=== PATIENT | male | born 1995 | race Caucasian/White ===

== ENCOUNTER 2018-05-05 17:22 | Emergency (ER) | payer SELFPAY ==
[2018-05-05] MEDS ORDERED: TYLENOL PO ONE (17:42)
[2018-05-05] MEDS ORDERED: TYLENOL ONE (17:47)
[2018-05-05] MEDS ORDERED: NACL 0.9% 1000 ML IV ONE (18:22)
--- NOTE | 2018-05-05 18:26 | Emergency Department Report ---
Blank Doc - Documentation Documentation: This is a 22-year-old male who presents to ED complaining of fever for the past 3 days, throat pain and back pain. Patient states he is at throat pain ongoing for about a week and is got more severe past 3 days. He states that temperature is at half the past 3 days he's had diffuse back pain and feels very sick. Patient received Tylenol in the ED triage with a temperature 101.9. An hour later while patient is in the ED with a temperature 103.9 Exam shows patient is diaphoretic and sweating, in some distress due to pain. Skin is erythematous. ED suspected sepsis protocol ordered. Labs ordered. Chest x-ray ordered. Pt to be moved to main ED and evaluated by ED physician.
[2018-05-05 18:44] LABS: Hematocrit 41.7 % (35.5-45.6); Hemoglobin 14.3 gm/dl (11.8-15.2); Mean Corpuscular HGB Conc 34 % (32-34); Mean Corpuscular Volume 90 fl (84-94); Platelet Count 221 K/mm3 (140-440); Red Blood Count 4.66 M/mm3 (3.65-5.03); Red Cell Distribution Width 12.8 % (13.2-15.2)
[2018-05-05 19:04] LABS: Bilirubin,Urine NEG (Negative); Blood,Urine NEG (Negative); Color,Urine Amber (Yellow); Mucus,Urine 2+ /HPF
[2018-05-05 19:06] LABS: Alanine Aminotransferase 10 units/L (7-56); Albumin 4.2 g/dL (3.9-5); BUN/Creatinine Ratio 9; Blood Urea Nitrogen 7 mg/dL (9-20); Calcium 8.7 mg/dL (8.4-10.2); Hemolysis Index 11
[2018-05-05 19:16] LABS: Basophils % (Manual) 0 % (0.0-1.8); Eosinophils % (Manual) 0 % (0.0-4.3); Total Cells Counted 100
[2018-05-05 19:17] LABS: RBC Morphology Normal
--- NOTE | 2018-05-05 19:26 | XRay Report ---
FINAL REPORT EXAM: XR CHEST 1V AP HISTORY: fever TECHNIQUE: Frontal portable view of the chest Comparison: None FINDINGS: There is no evidence of infiltrate, pneumothorax or pleural fluid collection. The cardiomediastinal silhouette is normal in appearance. The bony structures are unremarkable. IMPRESSION: 1. No evidence of an acute pulmonary process.
--- NOTE | 2018-05-05 19:50 | Emergency Department Report ---
ED Fever HPI - General Chief Complaint: Fever Stated Complaint: FEVER 3XDAYS/SWOLLEN LYMPH NODES/BACK PAIN Time Seen by Provider: 05/05/18 18:21 Source: patient Exam Limitations: no limitations - History of Present Illness Initial Comments: She is a 22-year-old male that presents emergency room with complaints of fever and sore throat and left flank pain. Patient states he was seen in urgent care and given Keflex but has not had any relief for his sore throat. Patient states that he had negative strep at the urgent care. Patient states symptoms are worsening. Patient states he has taken ibuprofen Tylenol for his fever and it helps. Patient's status hasn't been going on for 3 days. Timing/Duration: constant Fever Severity/Quality: greater than 102 F Fever Therapy OTR OWNER OPERATOR: Ibuprofen, Tylenol Associated Symptoms: abdominal pain, cough, muscle aches, sore throat. denies: chest pain, confusion, diaphoresis, headache, nausea/vomiting, rash, shortness of breath, stiff neck, syncope, weakness ED Review of Systems ROS: Stated complaint: FEVER 3XDAYS/SWOLLEN LYMPH NODES/BACK PAIN Other details as noted in HPI Constitutional: chills, fever, malaise Eyes: denies: eye pain, eye discharge, vision change ENT: throat pain. denies: ear pain Respiratory: cough. denies: shortness of breath, wheezing Cardiovascular: denies: chest pain, palpitations Endocrine: no symptoms reported Gastrointestinal: abdominal pain. denies: nausea, diarrhea Genitourinary: denies: urgency, dysuria Musculoskeletal: back pain. denies: joint swelling, arthralgia Skin: denies: rash, lesions Neurological: denies: headache, weakness, paresthesias Psychiatric: denies: anxiety, depression Hematological/Lymphatic: denies: easy bleeding, easy bruising ED Past Medical Hx - Past Medical History Previous Medical History?: No - Surgical History Past Surgical History?: No - Family History Family history: no significant - Social History Smoking Status: Never Smoker Substance Use Type: None - Medications Home Medications: Home Medications Medication Instructions Recorded Confirmed Last Taken Type Amoxicillin [Amoxicillin TAB] 875 mg PO BID 10 Days #20 tablet 05/05/18 Unknown Rx Sulfamethoxazole/Trimethoprim 1 each PO BID 10 Days #20 tablet 05/05/18 Unknown Rx [Bactrim DS TAB] methylPREDNISolone [Medrol] 4 mg PO DAILY 6 Days #1 tab.ds.pk 05/05/18 Unknown Rx ED Physical Exam - General Limitations: No Limitations General appearance: alert, in no apparent distress - Head Head exam: Present: atraumatic, normocephalic - Eye Eye exam: Present: normal appearance, PERRL Pupils: Present: normal accommodation - ENT ENT exam: Present: mucous membranes dry - Expanded ENT Exam Expanded Throat exam: Positive: tonsillar erythema, tonsillomegaly, tonsillar exudate - Neck Neck exam: Present: normal inspection - Respiratory Respiratory exam: Present: normal lung sounds bilaterally. Absent: respiratory distress - Cardiovascular Cardiovascular Exam: Present: regular rate, normal rhythm. Absent: systolic murmur, diastolic murmur, rubs, gallop - GI/Abdominal GI/Abdominal exam: Present: soft, normal bowel sounds. Absent: distended, tenderness, guarding, rebound - Rectal Rectal exam: Present: deferred - Extremities Exam Extremities exam: Present: normal inspection - Back Exam Back exam: Present: normal inspection - Neurological Exam Neurological exam: Present: alert, oriented X3 - Psychiatric Psychiatric exam: Present: normal affect, normal mood - Skin Skin exam: Present: warm, dry, intact, normal color. Absent: rash ED Course Vital Signs 05/05/18 05/05/18 05/05/18 17:39 18:20 23:28 Temperature 101.2 F H 103.1 F H 99.2 F Pulse Rate 119 H 100 H Respiratory 16 17 Rate Blood Pressure 127/66 Blood Pressure 117/68 [Left] O2 Sat by Pulse 99 98 Oximetry - Reevaluation(s) Reevaluation #1: Patient states he is feeling better. Patient will be given IV antibiotics and steroids. And if the patient tolerates by mouth intake patient can be discharg ed home 05/05/18 22:00 Patient tolerated by mouth intake. No vomiting noted. She is stable for d ischarge. Patient agrees with plan of care and discharge. Patient given discharge instructions. Patient was started on antibiotics and Medrol Dosepak. Patient given return to ER instructions. Patient voiced understanding of discharge instructions 05/05/18 22:38 ED Medical Decision Making - Lab Data Result diagrams: 05/05/18 18:30 05/05/18 18:30 - Radiology Data Radiology results: report reviewed FINAL REPORT EXAM: CT ABDOMEN PELVIS WO CON HISTORY: flank pain. fever TECHNIQUE: Axial helical imaging through the abdomen and pelvis with sagittal and coronal reformatted images obtained. Comparison: Chest x-ray also performed today FINDINGS: The liver, pancreas, kidneys and adrenal glands are unremarkable in appearance. There is no evidence of hydronephrosis or urinary tract calculi. The gallbladder is mildly distended and unremarkable in appearance. The spleen is mildly enlarged. There is mild distention of the small bowel and colon with air-fluid levels without evidence of bowel wall thickening and without evidence of pericolic inflammatory change. T his may represent changes of enteritis. The appendix is normal caliber. The abdominal aorta is normal caliber. There is no evidence of pathologic intra-abdominal adenopathy by CT size criteria. The urinary bladder is moderately to markedly distended but otherwise unremarkable. The prostate gland and seminal vesicles are unremarkable. The bony structures are unremarkable. IMPRESSION: 1. Mild distention of the small bowel and colon with air-fluid levels which may represent changes of enteritis. 2. Mild splenomegaly. FINAL REPORT EXAM: XR CHEST 1V AP HISTORY: fever TECHNIQUE: Frontal portable view of the chest Comparison: None FINDINGS: There is no evidence of infiltrate, pneumothorax or pleural fluid collection. The cardiomediastinal silhouette is normal in appearance. The bony structures are unremarkable. IMPRESSION: 1. No evidence of an acute pulmonary process. - Medical Decision Making Patient is a 22-year-old male presents emergency room with complaints of sore throat, back and flank pain and fever. Patient's symptoms were improved with treatment. Patient states he feels better after therapy. Patient stable for discharge. Patient discharged home. Patient's strep negative, flu negative, mono negative. Labs essentially unremarkable except for minor hyponatremia and elevated white count. Patient's hyponatremia most likely secondary to dehydration. Patient tolerated by mouth challenge. Patient given antibiotics and IV fluids. Patient improved. Patient's fever improved - Differential Diagnosis sore throat. Strep. URI. UTI. Critical care attestation.: If time is entered above; I have spent that time in minutes in the direct care of this critically ill patient, excluding procedure time. ED Disposition Clinical Impression: Sore throat, Flank pain, Acute bacterial tonsillitis, Dehydration Fever Qualifiers: Fever type: unspecified Qualified Code(s): R50.9 - Fever, unspecified Pharyngitis Qualifiers: Pharyngitis/tonsillitis etiology: streptococcus Qualified Code(s): J02.0 - Streptococcal pharyngitis UTI (urinary tract infection) Qualifiers: Urinary tract infection type: acute cystitis Hematuria presence: with hematuria Qualified Code(s): N30.01 - Acute cystitis with hematuria Disposition: TO HOME OR SELFCARE Is pt being admited?: No Does the pt Need Aspirin: No Condition: Stable Instructions: Pharyngitis (ED), Strep Throat (ED), Fever in Adults (ED), Tonsillitis (ED) Additional Instructions: Patient fell primary care in 2-3 days. Patient to return to ER if condition worsens. Patient to take medicines as directed. Push take Tylenol when necessary for pain and fever. Patient to increase water. Patient to rest. Prescriptions: Amoxicillin [Amoxicillin TAB] 875 mg PO BID 10 Days #20 tablet methylPREDNISolone [Medrol] 4 mg PO DAILY 6 Days #1 tab.ds.pk Sulfamethoxazole/Trimethoprim [Bactrim DS TAB] 1 each PO BID 10 Days #20 tablet Referrals: BOBBI VIZCAINO MD [Primary Care Provider] - 2-3 Days Time of Disposition: 22:38
--- NOTE | 2018-05-05 21:06 | Cat Scan Report ---
FINAL REPORT EXAM: CT ABDOMEN PELVIS WO CON HISTORY: flank pain. fever TECHNIQUE: Axial helical imaging through the abdomen and pelvis with sagittal and coronal reformatte d images obtained. Comparison: Chest x-ray also performed today FINDINGS: The liver, pancreas, kidneys and adrenal glands are unremarkable in appearance. There is no evidence of hydronephrosis or urinary tract calculi. The gallbladder is mildly distended and unremarkable in appearance. The spleen is mildly enlarged. There is mild distention of the small bowel and colon with air-fluid levels without evidence of bowel wall thickening and without evidence of pericolic inflammatory change. This may represent changes of enteritis. The appendix is normal caliber. The abdominal aorta is normal caliber. There is no evidence of pathologic intra-abdominal adenopathy by CT size criteria. The urinary bladder is moderately to markedly distended but otherwise unremarkable. The prostate gland and seminal vesicles are unremarkable. The bony structures are unremarkable. IMPRESSION: 1. Mild distention of the small bowel and colon with air-fluid levels which may represent changes of enteritis. 2. Mild splenomegaly.
[2018-05-05] MEDS ORDERED: ROCEPHIN/NS 1 GM/50 ML 1 GM/50 ML BAG IV ONE (21:53)
[2018-05-05] MEDS ORDERED: SOLU-Medrol IV ONE (21:54)
[2018-05-05 23:29] VITALS: BP 117/68
== END 2018-05-05 23:29 | disposition home or self-care (01) ==
LOC: ED 17:22
DX: J02.9 Acute pharyngitis, unspecified (principal); N39.0 Urinary tract infection, site not specified; E86.0 Dehydration; B96.89 Other specified bacterial agents as the cause of diseases classified elsewhere
CPT/HCPCS: 36415; 71045; 74176; 80053; 81001; 82140; 82550; 85007; 85025; 86308; 87040; 87116; 87400; 87430; 96361; 96365; 96375; 99284; J0696; J2930; J7030